=== PATIENT | female | born 1985 | race Hispanic/Latino ===

== ENCOUNTER 2017-07-11 10:06 | Emergency (ER) | payer SELFPAY ==
[2017-07-11] MEDS ORDERED: Metoclopramide HCl 10 MG/2 ML VIAL ONE (10:54)
[2017-07-11] MEDS ORDERED: diphenhydrAMINE 50 MG/ML VIAL ONE (10:54)
[2017-07-11 11:16] LABS: #Basophils 0.1 thou/uL (0.0-0.2); #Eosinphils 0.1 thou/uL (0.0-0.7); #Lymphocytes 2.1 thou/uL (1.20-3.40); #Monocytes 0.7 thou/uL (0.11-0.59); #Neutrophils 5.3 thou/uL (1.40-6.50); %Basophils 0.7 % (0.0-1.0); %Eosinophils 1.7 % (0.0-10.0); %Lymphocytes 25.5 % (21.0-51.0); %Monocytes 8.4 % (0.0-10.0); %Neutrophils 63.7 % (42.0-75.0); Mean Corpuscular Hemoglobin 33.7 pg (27.0-31.0); Mean Platelet Volume 7.6 fL (7.4-10.4); Platelet Count 243 thou/uL (130-400); RBC Distribution Width 12.6 % (11.5-14.5); Red Blood Cell (RBC) Count 4.44 mill/uL (4.20-5.40); White Blood Cell (WBC) Count 8.2 thou/uL (4.8-10.8)
[2017-07-11 11:28] LABS: PTT 28.6 SEC (22.9-36.1); Prothrombin Time 12.8 SEC (12.0-14.7)
[2017-07-11 11:29] LABS: BHCG - Serum Negative (NEGATIVE); Pregs Control Background? CLEAR/WHITE (CLR/WHITE); Pregs Control Bar Appear? YES (CONTROL BAR)
[2017-07-11] MEDS ORDERED: Acetaminophen 500 MG TAB ONE (11:33)
[2017-07-11 11:42] LABS: ALT (SGPT) 23 U/L (8-55); AST (SGOT) 28 U/L (5-34); Albumin 4.4 g/dL (3.5-5.0); Alkaline Phosphatase 56 U/L (40-150); Anion Gap 13 mmol/L (10-20); BUN (Urea Nitrogen) 14 mg/dL (7.0-18.7); Bilirubin, Total 0.5 mg/dL (0.2-1.2); Calc. Creatinine Clearance 0 mL/min (70-130); Calcium 9.4 mg/dL (7.8-10.44); Carbon Dioxide 21 mmol/L (22-29); Chloride 108 mmol/L (98-107); Estimated GFR-MDRD 76; Globulin 2.9 g/dL (2.4-3.5); Glucose 94 mg/dL (70-105); Potassium 3.2 mmol/L (3.5-5.1); Protein, Total 7.3 g/dL (6.0-8.3); Sodium 139 mmol/L (136-145)
[2017-07-11 11:46] LABS: CKMB 2.1 ng/mL (0-6.6); Troponin I Less than 0.010 ng/mL (< 0.028)
[2017-07-11] MEDS ORDERED: Potassium Chloride 20 MEQ TAB ONE ×2 (12:40→12:41)
[2017-07-11] MEDS ORDERED: Ketorolac Tromethamine 30 MG/ML VIAL ONE (13:04)
--- NOTE | 2017-07-11 13:46 | CT ---
CT BRAIN WITHOUT CONTRAST: HISTORY: Intermittent left sided facial droopiness and extremity weakness. COMPARISON: 06/06/2013 FINDINGS: No evidence of acute infarct, hemorrhage, midline shift, or abnormal extraaxial fluid collections is seen. The ventricular size is normal, and the basilar cisterns are patent. The bony calvarium is in tact. The visualized paranasal sinuses are well aerated. IMPRESSION: No CT evidence of acute intracranial process. Discussed over the telephone with ER physician, Dr. Horace Smith, at 11:21 a.m. CODE CR POS: OFF
== END 2017-07-11 14:02 | disposition home or self-care (01) ==
LOC: ERS 10:06
DX: G43.109 Migraine with aura, not intractable, without status migrainosus (principal)
CPT/HCPCS: 36415; 36416; 70450; 80053; 82553; 84484; 84703; 85025; 85610; 85730; 96365; 96366; 96375; J1200; J1885; J2765

== ENCOUNTER 2018-12-20 19:27 | Emergency (ER) | payer SELFPAY ==
[2018-12-20] MEDS ORDERED: Ketorolac Tromethamine 30 MG/ML VIAL ONE (20:18)
[2018-12-20] MEDS ORDERED: Prochlorperazine 10 MG/2 ML VIAL ONE (20:18)
== END 2018-12-20 21:04 | disposition home or self-care (01) ==
LOC: SCSER 19:27
DX: G43.909 Migraine, unspecified, not intractable, without status migrainosus (principal)
CPT/HCPCS: 96365; 96375; J0780; J1885

== ENCOUNTER 2020-04-09 11:25 | Inpatient (IN) | payer OTHER, SELFPAY ==
[2020-04-09] MEDS ORDERED: Iopamidol-370 76% 500 ML 1 ML ONE (11:27)
[2020-04-09] MEDS ORDERED: Fentanyl 100 MCG/2 ML VIAL ONE (11:31)
[2020-04-09] MEDS ORDERED: Ondansetron PF 4 MG/2 ML Vial ONE ×2 (11:31→11:32)
[2020-04-09] MEDS ORDERED: Boostrix 0.5 ML (Tdap) VIAL ONE (11:31)
[2020-04-09] MEDS ORDERED: Ketamine 50 MG/ML (10ML VIAL) ONE (11:38)
[2020-04-09] MEDS ORDERED: Lidocaine 1% w/Epinephrine 1:100K 20 ML VIAL ONE (12:08)
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
[2020-04-09 12:20] LABS: #Eosinphils 0.1 thou/uL (0.0-0.7); #Lymphocytes 1.2 thou/uL (1.20-3.40); #Monocytes 0.4 thou/uL (0.11-0.59); #Neutrophils 5.7 thou/uL (1.40-6.50); %Basophils 0.5 % (0.0-1.0); %Eosinophils 1.3 % (0.0-10.0); %Lymphocytes 15.9 % (21.0-51.0); %Monocytes 5.2 % (0.0-10.0); %Neutrophils 77.1 % (42.0-75.0); Hemoglobin 12.6 g/dL (12.0-16.0); Mean Corpuscular Hemoglobin 33.2 pg (27.0-31.0); Mean Platelet Volume 7.5 fL (7.4-10.4); Platelet Count 247 thou/uL (130-400); RBC Distribution Width 12.3 % (11.5-14.5); Red Blood Cell (RBC) Count 3.79 mill/uL (4.20-5.40); White Blood Cell (WBC) Count 7.4 thou/uL (4.8-10.8)
[2020-04-09 12:27] LABS: INR-International Normal Ratio 0.9; PTT 27.8 sec (22.9-36.1); Prothrombin Time 12.6 sec (12.0-14.7)
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
[2020-04-09 12:42] LABS: ALT (SGPT) 37 U/L (8-55); AST (SGOT) 59 U/L (5-34); Albumin 3.8 g/dL (3.5-5.0); Alcohol 186 mg/dL (Less than 10); Alkaline Phosphatase 54 U/L (40-110); Anion Gap 14 mmol/L (10-20); BUN (Urea Nitrogen) 11 mg/dL (7.0-18.7); Bilirubin, Total 0.2 mg/dL (0.2-1.2); Calc. Creatinine Clearance 0 mL/min (70-130); Calcium 7.5 mg/dL (7.8-10.44); Carbon Dioxide 24 mmol/L (22-29); Chloride 108 mmol/L (98-107); Globulin 2.5 g/dL (2.4-3.5); Glucose 96 mg/dL (70-105); Potassium 3.6 mmol/L (3.5-5.1); Protein, Total 6.3 g/dL (6.0-8.3); Sodium 142 mmol/L (136-145)
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
[2020-04-09] MEDS ORDERED: Dextrose 50% Abboject 50 ML SYRINGE SLOW IVP PRN (14:06)
[2020-04-09] MEDS ORDERED: Dextrose 5% in Water 1,000 ML IV PRN (14:06)
[2020-04-09] MEDS ORDERED: Ondansetron PF 4 MG/2 ML Vial IVP PRN (14:06)
[2020-04-09] MEDS ORDERED: Sodium Chloride 0.9% 1,000 ML IV SCH (14:15)
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
[2020-04-09] MEDS: Lactated Ringer's 1,000 ML IV SCH ×2 (16:36→20:52)
[2020-04-09] MEDS: Acetaminophen 325 MG TAB PO SCH (16:51)
[2020-04-09] MEDS: traMADol HCl 50 MG TAB PO PRN (16:52)
--- NOTE | 2020-04-09 17:00 | PDOC.EVN ---
Event Note - Event Note Event Note: Seen and examined. Agree with Amina Goodman [employer] note. Neurologically stable.
[2020-04-09 17:47] VITALS: BMI 18.8
[2020-04-09] MEDS: Triple Antibiotic Oint 1 GM Packet TOP SCH (20:38)
[2020-04-09] MEDS: Senokot S 8.6-50 MG TAB PO SCH (20:38)
[2020-04-09] MEDS: Famotidine 20 MG TAB PO SCH (20:52)
[2020-04-10] MEDS: Acetaminophen 325 MG TAB PO SCH ×4 (00:45→18:12)
[2020-04-10] MEDS: traMADol HCl 50 MG TAB PO PRN ×3 (00:45→20:10)
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
[2020-04-10 05:48] LABS: #Basophils 0.1 thou/uL (0.0-0.2); #Eosinphils 0.3 thou/uL (0.0-0.7); #Lymphocytes 2.3 thou/uL (1.20-3.40); #Monocytes 0.7 thou/uL (0.11-0.59); #Neutrophils 5.9 thou/uL (1.40-6.50); %Basophils 0.8 % (0.0-1.0); %Eosinophils 2.8 % (0.0-10.0); %Monocytes 7.9 % (0.0-10.0); %Neutrophils 63.6 % (42.0-75.0); Hemoglobin 12.2 g/dL (12.0-16.0); Mean Corpuscular HGB CONC 32.9 g/dL (32.0-36.0); Mean Corpuscular Hemoglobin 33.5 pg (27.0-31.0); Mean Platelet Volume 7.7 fL (7.4-10.4); Platelet Count 212 thou/uL (130-400); RBC Distribution Width 12.4 % (11.5-14.5); Red Blood Cell (RBC) Count 3.64 mill/uL (4.20-5.40); White Blood Cell (WBC) Count 9.3 thou/uL (4.8-10.8)
[2020-04-10 06:10] LABS: Anion Gap 13 mmol/L (10-20); BUN (Urea Nitrogen) 12 mg/dL (7.0-18.7); Calc. Creatinine Clearance 91 mL/min (70-130); Calcium 8.4 mg/dL (7.8-10.44); Carbon Dioxide 26 mmol/L (22-29); Chloride 108 mmol/L (98-107); Glucose 91 mg/dL (70-105); Magnesium 1.9 mg/dL (1.6-2.6); Potassium 4.1 mmol/L (3.5-5.1); Sodium 143 mmol/L (136-145)
[2020-04-10 06:11] LABS: Phosphorus 3.3 mg/dL (2.3-4.7)
[2020-04-10] MEDS: Lactated Ringer's 1,000 ML IV SCH ×2 (06:14→08:40)
[2020-04-10 06:39] LABS: Amphetamine Not Detected (NotDetected); Barbiturates Screen Not Detected (NotDetected); Benzodiazepine Screen Not Detected (NotDetected); Cocaine Metabolite Screen Not Detected (NotDetected); Medtox Control Line Valid? VALID (VALID); Medtox Reader # READER 4; Methadone Not Detected (NotDetected); Methamphetamine Not Detected (NotDetected); Opiate Screen Not Detected (NotDetected); Oxycodone Screen Not Detected (NotDetected); Phencyclidine (PCP) Not Detected (NotDetected); THC/Cannabinoid Screen Not Detected (NotDetected); Tricyclic Screen Not Detected (NotDetected)
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
[2020-04-10] MEDS: Senokot S 8.6-50 MG TAB PO SCH ×2 (08:41→20:09)
[2020-04-10] MEDS: Triple Antibiotic Oint 1 GM Packet TOP SCH ×2 (08:42→20:09)
[2020-04-10] MEDS: Polyethylene Glycol 3350 17 GM Packet PO SCH (08:42)
[2020-04-10] MEDS: Famotidine 20 MG TAB PO SCH ×2 (08:42→20:09)
--- NOTE | 2020-04-10 08:43 | CT ---
CT head noncontrast HISTORY: Intracranial hemorrhage. Follow-up. COMPARISON: 04/09/2020. FINDINGS: The area of subarachnoid hemorrhage at the left sylvian fissure is no longer visible. No new areas of intracranial hemorrhage or infarct. Ventricles appear normal in size, shape and posit ion. There is no mass effect or shift of midline structures. Visualized paranasal sinuses remain well-aerated. IMPRESSION : Interval dissipation of left subarachnoid hemorrhage. No new abnormalities.
--- NOTE | 2020-04-10 09:02 | RAD ---
Chest one view HISTORY: Dyspnea. Possible pneumothorax. COMPARISON: 04/09/2020. FINDINGS: Cardiac silhouette and pulmonary vasculature are unremarkable. Mediastinum is midline. Lungs are well-inflated. No evidence of pneumothorax. Extrinsic artifact overlies the left upper chest. IMPRESSION : No evidence of pneumothorax.
[2020-04-10] MEDS ORDERED: Scopolamine 1.5 mg/72 hour Patch TD SCH (11:00)
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
[2020-04-11] MEDS: Acetaminophen 325 MG TAB PO SCH ×5 (01:00→23:46)
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
[2020-04-11] MEDS: traMADol HCl 50 MG TAB PO PRN ×2 (05:48→21:59)
[2020-04-11] MEDS: Senokot S 8.6-50 MG TAB PO SCH ×2 (08:59→21:59)
[2020-04-11] MEDS: Polyethylene Glycol 3350 17 GM Packet PO SCH (08:59)
[2020-04-11] MEDS: Famotidine 20 MG TAB PO SCH ×2 (08:59→21:59)
[2020-04-11] MEDS: Triple Antibiotic Oint 1 GM Packet TOP SCH ×2 (08:59→21:59)
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
[2020-04-12] MEDS: Acetaminophen 325 MG TAB PO SCH (05:38)
[2020-04-12] MEDS: traMADol HCl 50 MG TAB PO PRN (05:38)
[2020-04-12] MEDS: Polyethylene Glycol 3350 17 GM Packet PO SCH (08:32)
[2020-04-12] MEDS: Senokot S 8.6-50 MG TAB PO SCH (08:33)
[2020-04-12] MEDS: Famotidine 20 MG TAB PO SCH (08:33)
[2020-04-12] MEDS: Triple Antibiotic Oint 1 GM Packet TOP SCH (08:34)
[2020-04-12 08:39] VITALS: TEMP 98.2
[2020-04-12 11:56] VITALS: BP 117/68
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
== END 2020-04-12 13:02 | disposition home or self-care (01) | DRG 84 ==
LOC: ERS 11:25 → SJJU 12:56
PROVIDERS: ADMIT Surgery; ATTEND Surgery
PROC: 0HQ1XZZ Repair Face Skin, External Approach (ICD-10-PCS; principal; 2020-04-09)
DX: S06.6X9A Traumatic subarachnoid hemorrhage with loss of consciousness of unspecified duration, initial encounter (principal); G43.909 Migraine, unspecified, not intractable, without status migrainosus; F10.129 Alcohol abuse with intoxication, unspecified; Y90.6 Blood alcohol level of 120-199 mg/100 ml; J30.2 Other seasonal allergic rhinitis; Z23 Encounter for immunization; S20.211A Contusion of right front wall of thorax, initial encounter; R40.2353 Coma scale, best motor response, localizes pain, at hospital admission; R40.2113 Coma scale, eyes open, never, at hospital admission; R40.2243 Coma scale, best verbal response, confused conversation, at hospital admission; S01.111A Laceration without foreign body of right eyelid and periocular area, initial encounter; Z86.73 Personal history of transient ischemic attack (TIA), and cerebral infarction without residual deficits; Z79.899 Other long term (current) drug therapy; Z78.1 Physical restraint status; V49.9XXA Car occupant (driver) (passenger) injured in unspecified traffic accident, initial encounter; Y92.410 Unspecified street and highway as the place of occurrence of the external cause; Z79.82 Long term (current) use of aspirin
CPT/HCPCS: 12013; 36415; 70450; 70486; 71045; 71260; 72125; 74177; 80048; 80053; 80306; 80307; 83735; 84100; 85025; 85610; 85730; 90471; 90715; 96374; 96375; G0390; J2405; J3010; Q9967

== ENCOUNTER 2024-12-22 11:34 | Outpatient (CLI) | payer OTHER, SELFPAY | END 2024-12-22 11:35 | disposition home or self-care (01) | LOC: SCSRAD 11:34 | PROVIDERS: ATTEND Nurse Practitioner Family | DX: M79.641 Pain in right hand (principal) ==